=== PATIENT | female | born 1935 | race Caucasian/White ===

== ENCOUNTER 2017-01-21 10:45 | Outpatient (CLI) | payer MEDICARE ==
[2017-01-24 21:09] LABS: H. pylori IgA ABS Less than 9.0 units (0.0-8.9); H. pylori IgG ABS Less than 0.9 U/mL (0.0-0.8); H. pylori IgM ABS Less than 9.0 units (0.0-8.9)
== END 2017-01-21 10:46 | disposition home or self-care (01) ==
LOC: MADLAB 10:45
PROVIDERS: ATTEND Internal Medicine Gastroenterology
DX: R10.13 Epigastric pain (principal)
CPT/HCPCS: 36415

== ENCOUNTER 2017-09-01 13:19 | Outpatient (CLI) | payer MEDICARE | END 2017-09-01 13:20 | disposition home or self-care (01) | LOC: MADLABBHPM 13:19 | PROVIDERS: ATTEND Family Medicine | DX: R63.4 Abnormal weight loss (principal) | CPT/HCPCS: 82274 ==

== ENCOUNTER 2017-12-17 12:46 | Outpatient (CLI) | payer MEDICARE ==
--- NOTE | 2017-12-17 14:37 | CT ---
CT OF THE THORAX WITHOUT IV CONTRAST: Date: 12/17/17 INDICATION: History of cough, follow-up pulmonary lung disease. COMPARISON: Prior exam dated 02/28/16 and 08/01/14. FINDINGS: There are scattered areas of interlobular and intralobular septal thickening seen predominantly in a basilar distribution, appears similar. There are prominent areas of bronchiectasis and some pleural e mphysema is largely stable. There are fluctuating peripheralized densities likely related to some bro nchiolitis and mucus plugging that appear largely similar to the prior examination. A few scattered a reas of nodularity appear slightly more predominant, predominantly in the upper lobe distributions th an on the most recent comparison in 2005, but does not appear as severe as seen on the comparison exa m of 08/01/14. There are scattered vascular calcifications involving the coronary arteries of the tho racic aorta. The gallbladder is surgically absent. No acute osseous abnormality is demonstrated. IMPRESSION: Slightly increased fluctuating areas of peripheral nodular density and tree-in-bud type nodularity ca n be seen with mucus plugging and bronchiolitis. The bronchiectasis and peripheral interstitial lung disease appears largely stable. Continued follow-up is recommended. POS: YAN
== END 2017-12-17 12:47 | disposition home or self-care (01) ==
LOC: MADCT 12:46
PROVIDERS: ATTEND Internal Medicine
DX: J98.4 Other disorders of lung (principal); R05 Cough; M06.9 Rheumatoid arthritis, unspecified; J84.9 Interstitial pulmonary disease, unspecified; J47.9 Bronchiectasis, uncomplicated
CPT/HCPCS: 71250

== ENCOUNTER 2020-02-28 15:29 | Outpatient (CLI) | payer MEDICARE ==
[~2020-02-28 15:29] MED LIST: Iopamidol 370 76% 100 ML VIAL ONE
--- NOTE | 2020-02-28 16:42 | CT ---
Exam: Head CT with and without contrast HISTORY: Cognitive impairment. FINDINGS: Noncontrast head CT: No parenchymal hemorrhage No extra-axial hematoma No midline shift Basilar cisterns are patent Age-appropriate atrophy. Cortical vincent-white matter differentiation is preserved There are chronic small vessel ischemic changes white matter No hydrocephalus. Prominence of the ventricular system is in keeping with the overall degree of atrop hy. Intact calvarium. Adequate aeration of the sinuses and mastoid air cells Postcontrast head CT: No pathologic enhancement of the brain parenchyma. IMPRESSION: 1. No acute intracranial process 2. No pathologic enhancement the brain parenchyma. Further evaluation with brain MRI if clinically wa rranted.
== END 2020-02-28 15:30 | disposition home or self-care (01) ==
LOC: MADCT 15:29 → MADLAB 15:30
PROVIDERS: ATTEND Family Medicine
DX: G31.84 Mild cognitive impairment of uncertain or unknown etiology (principal)
CPT/HCPCS: 36415; 70470; 82565; Q9967

== ENCOUNTER 2020-12-27 06:15 | Outpatient (CLI) | payer MEDICARE ==
[2020-12-27 07:13] LABS: Bilirubin Negative (Negative); Clarity Hazy (Clear); Glucose, Urine (Dipstick) Negative (Negative); Ketone, Urine Negative (Negative); Leukocyte Large (Negative); Nitrite Positive (Negative); Protein, Urine (Dipstick) 30 mg/dL (Neg-Trace); Urobilinogen 0.2 mg/dL (Less than 2)
[2020-12-27 07:14] LABS: Bacteria/HPF 2+ HPF (None Seen); Blood, Urine Moderate (Negative); Squamous Epithelial 0-3 HPF (0-3); WBC/HPF Greater Than 50 HPF (0-3)
== END 2020-12-27 06:16 | disposition home or self-care (01) ==
LOC: MADLABBHPM 06:15
PROVIDERS: ATTEND Family Medicine
DX: R35.0 Frequency of micturition (principal); A43.0 Pulmonary nocardiosis
CPT/HCPCS: 81001; 87077; 87086; 87186

== ENCOUNTER 2021-01-02 12:12 | Inpatient (IN) | payer MEDICARE ==
[2021-01-02 13:33] VITALS: BMI 17.4
[2021-01-02] MEDS: Nitrofurantoin Monohyd/M-Cryst 100 MG CAP PO SCH (20:31)
[2021-01-03 05:45] LABS: #Basophils 0.1 thou/uL (0.0-0.2); #Eosinphils 0.2 thou/uL (0.0-0.7); #Lymphocytes 2.3 thou/uL (1.20-3.40); #Monocytes 0.6 thou/uL (0.11-0.59); #Neutrophils 3.5 thou/uL (1.40-6.50); %Eosinophils 2.7 % (0.0-10.0); %Lymphocytes 34.4 % (21.0-51.0); Hemoglobin 10.7 g/dL (12.0-16.0); Mean Corpuscular HGB CONC 31.6 g/dL (32.0-36.0); Mean Corpuscular Hemoglobin 31.6 pg (27.0-31.0); Mean Corpuscular Volume 100.1 fL (78.0-98.0); Mean Platelet Volume 8.4 fL (7.4-10.4); Platelet Count 201 thou/uL (130-400); RBC Distribution Width 12.2 % (11.5-14.5); White Blood Cell (WBC) Count 6.6 thou/uL (4.8-10.8)
[2021-01-03 06:00] LABS: ALT (SGPT) 19 U/L (8-55); AST (SGOT) 36 U/L (5-34); Albumin 2.7 g/dL (3.4-4.8); Alkaline Phosphatase 56 U/L (40-110); Anion Gap 9 mmol/L (10-20); BUN (Urea Nitrogen) 10 mg/dL (9.8-20.1); Bilirubin, Total 0.4 mg/dL (0.2-1.2); CRP (Inflammatory) 2.82 mg/dL (= or < 0.5); Calc. Creatinine Clearance 51 mL/min (70-130); Calcium 8.4 mg/dL (7.8-10.44); Carbon Dioxide 30 mmol/L (23-31); Chloride 103 mmol/L (98-107); Globulin 3.7 g/dL (2.4-3.5); Glucose 99 mg/dL (83-110); Potassium 3.2 mmol/L (3.5-5.1); Protein, Total 6.4 g/dL (5.8-8.1); Sodium 139 mmol/L (136-145)
[2021-01-03] MEDS ORDERED: Potassium Chloride 10 MEQ TAB PO SCH ×2 (08:15→17:00)
[2021-01-03] MEDS: Nitrofurantoin Monohyd/M-Cryst 100 MG CAP PO SCH ×2 (08:53→21:02)
[2021-01-03] MEDS ORDERED: Potassium Bicarbonate/Cit Ac 20 MEQ TAB PO SCH (11:00)
[2021-01-03] MEDS ORDERED: Sodium Chloride 0.9% 1,000 ML IV SCH (12:30)
[2021-01-03] MEDS: Potassium Bicarbonate/Cit Ac 20 MEQ TAB PO SCH (21:02)
[2021-01-04] MEDS: Potassium Bicarbonate/Cit Ac 20 MEQ TAB PO SCH ×2 (08:33→17:39)
[2021-01-04] MEDS: Nitrofurantoin Monohyd/M-Cryst 100 MG CAP PO SCH ×2 (08:34→20:24)
[2021-01-04] MEDS: Acetaminophen 325 MG TAB PO PRN (20:24)
[2021-01-05 05:33] LABS: #Basophils 0.1 thou/uL (0.0-0.2); #Eosinphils 0.3 thou/uL (0.0-0.7); #Lymphocytes 2.8 thou/uL (1.20-3.40); #Monocytes 0.5 thou/uL (0.11-0.59); #Neutrophils 2.3 thou/uL (1.40-6.50); %Basophils 1.4 % (0.0-1.0); %Eosinophils 4.6 % (0.0-10.0); %Lymphocytes 46.6 % (21.0-51.0); %Monocytes 8.4 % (0.0-10.0); %Neutrophils 38.9 % (42.0-75.0); Hemoglobin 11.6 g/dL (12.0-16.0); Mean Corpuscular HGB CONC 31.7 g/dL (32.0-36.0); Mean Corpuscular Hemoglobin 31.8 pg (27.0-31.0); Mean Corpuscular Volume 100.4 fL (78.0-98.0); Mean Platelet Volume 8.3 fL (7.4-10.4); Platelet Count 237 thou/uL (130-400); RBC Distribution Width 12.7 % (11.5-14.5); Red Blood Cell (RBC) Count 3.63 mill/uL (4.20-5.40)
[2021-01-05 05:43] LABS: Anion Gap 12 mmol/L (10-20); BUN (Urea Nitrogen) 10 mg/dL (9.8-20.1); Calc. Creatinine Clearance 49 mL/min (70-130); Calcium 8.8 mg/dL (7.8-10.44); Carbon Dioxide 29 mmol/L (23-31); Chloride 103 mmol/L (98-107); Glucose 101 mg/dL (83-110); Potassium 3.7 mmol/L (3.5-5.1); Sodium 140 mmol/L (136-145)
[2021-01-05] MEDS: Potassium Bicarbonate/Cit Ac 20 MEQ TAB PO SCH (08:18)
[2021-01-05] MEDS: Nitrofurantoin Monohyd/M-Cryst 100 MG CAP PO SCH (08:18)
[2021-01-05] MEDS: Acetaminophen 325 MG TAB PO PRN (22:09)
[2021-01-06] MEDS: Acetaminophen 325 MG TAB PO PRN (20:51)
[2021-01-07] MEDS: Acetaminophen 325 MG TAB PO PRN (20:38)
[2021-01-09 13:10] LABS: SARS-CoV-2 NAA Rapid Test Not Detected (NotDetected)
[2021-01-10] MEDS: Acetaminophen 325 MG TAB PO PRN (17:22)
[2021-01-11] MEDS: Acetaminophen 325 MG TAB PO PRN (20:08)
[2021-01-15 07:16] VITALS: BP 135/68; TEMP 98.1
== END 2021-01-15 11:26 | disposition home health service (06) | DRG 947 ==
LOC: MADMS 12:12
PROVIDERS: ADMIT Family Medicine; ATTEND Family Medicine
DX: R53.81 Other malaise (principal); G93.41 Metabolic encephalopathy; C85.10 Unspecified B-cell lymphoma, unspecified site; Z68.1 Body mass index [BMI] 19.9 or less, adult; N39.0 Urinary tract infection, site not specified; M06.9 Rheumatoid arthritis, unspecified; K21.9 Gastro-esophageal reflux disease without esophagitis; G31.84 Mild cognitive impairment of uncertain or unknown etiology; R63.0 Anorexia; I10 Essential (primary) hypertension; R13.10 Dysphagia, unspecified; Z20.822 Contact with and (suspected) exposure to COVID-19; T18.198A Other foreign object in esophagus causing other injury, initial encounter; E87.6 Hypokalemia; Z90.49 Acquired absence of other specified parts of digestive tract; Z90.710 Acquired absence of both cervix and uterus; Z98.890 Other specified postprocedural states; Z88.1 Allergy status to other antibiotic agents; Z88.2 Allergy status to sulfonamides; Z88.8 Allergy status to other drugs, medicaments and biological substances
CPT/HCPCS: 36415; 70360; 71045; 80048; 80053; 82306; 85025; 85652; 86140; J7050; U0002

== ENCOUNTER 2021-05-08 10:21 | Emergency (ER) | payer MEDICARE ==
[2021-05-08 10:50] LABS: #Basophils 0.1 thou/uL (0.0-0.2); #Eosinphils 0.1 thou/uL (0.0-0.7); #Lymphocytes 2.9 thou/uL (1.20-3.40); #Monocytes 0.7 thou/uL (0.11-0.59); #Neutrophils 6.7 thou/uL (1.40-6.50); %Basophils 0.7 % (0.0-1.0); %Eosinophils 1.2 % (0.0-10.0); %Lymphocytes 27.4 % (21.0-51.0); %Monocytes 6.8 % (0.0-10.0); %Neutrophils 63.9 % (42.0-75.0); Hemoglobin 12.1 g/dL (12.0-16.0); Mean Corpuscular HGB CONC 30.9 g/dL (32.0-36.0); Mean Corpuscular Hemoglobin 29.8 pg (27.0-31.0); Mean Corpuscular Volume 96.5 fL (78.0-98.0); Mean Platelet Volume 7.2 fL (7.4-10.4); Platelet Count 301 thou/uL (130-400); RBC Distribution Width 13.7 % (11.5-14.5); Red Blood Cell (RBC) Count 4.05 mill/uL (4.20-5.40); White Blood Cell (WBC) Count 10.5 thou/uL (4.8-10.8)
[2021-05-08 11:05] LABS: ALT (SGPT) Less than 7 U/L (8-55); AST (SGOT) 15 U/L (5-34); Albumin 3.1 g/dL (3.4-4.8); Alkaline Phosphatase 66 U/L (40-110); Anion Gap 13 mmol/L (10-20); BUN (Urea Nitrogen) 23 mg/dL (9.8-20.1); Bilirubin, Total 0.7 mg/dL (0.2-1.2); CK (CPK) 13 U/L (29-168); Calc. Creatinine Clearance 0 mL/min (70-130); Calcium 9.3 mg/dL (7.8-10.44); Carbon Dioxide 28 mmol/L (23-31); Chloride 100 mmol/L (98-107); Globulin 5.1 g/dL (2.4-3.5); Glucose 105 mg/dL (83-110); Lipase 11 U/L (8-78); Potassium 4.1 mmol/L (3.5-5.1); Protein, Total 8.2 g/dL (5.8-8.1); Sodium 137 mmol/L (136-145)
[2021-05-08] MEDS ORDERED: Lactated Ringer's 1,000 ML ONE (11:23)
[2021-05-08 12:10] LABS: Bilirubin Negative (Negative); Blood, Urine Trace (Negative); Clarity Slightly Cloudy (Clear); Glucose, Urine (Dipstick) Negative (Negative); Ketone, Urine Negative (Negative); Leukocyte Moderate (Negative); Nitrite Positive (Negative); Protein, Urine (Dipstick) 100 mg/dL (Neg-Trace); Urobilinogen 0.2 mg/dL (Less than 2); pH, Urine 6.5 (5.0-9.0)
[2021-05-08 12:12] LABS: Bacteria/HPF 1+ HPF (None Seen); RBC/HPF 0-3 HPF (0-3); Squamous Epithelial 0-3 HPF (0-3)
[2021-05-08] MEDS ORDERED: Sodium Chloride 0.9% 100 ML ONE (12:52)
[2021-05-08] MEDS ORDERED: cefTRIAXone\\ROCEPHIN 1 GM VIAL ONE (12:52)
[2021-05-08] MEDS ORDERED: Sodium Chloride 0.9% 1,000 ML ONE (14:30)
== END 2021-05-08 16:33 | disposition short-term general hospital (02) ==
LOC: MADERS 10:21
DX: N39.0 Urinary tract infection, site not specified (principal); R62.7 Adult failure to thrive; R53.1 Weakness; R63.4 Abnormal weight loss
CPT/HCPCS: 36415; 51702; 71045; 80053; 81003; 81015; 82550; 83605; 83690; 83735; 84443; 84484; 85025; 87077; 87086; 87186; 93005; 94760; 96365; J0696; J3490; J7050; J7120

== ENCOUNTER 2021-05-10 18:46 | Inpatient (IN) | payer MEDICARE ==
[2021-05-10] MEDS ORDERED: Guaifenesin DM 100-10/5 ML UDCUP PO PRN (20:24)
[2021-05-10] MEDS ORDERED: Senokot 8.6 MG TAB PO PRN (20:26)
[2021-05-10] MEDS ORDERED: Calcium Carbonate 500 MG ChewTAB PO PRN (20:32)
[2021-05-10] MEDS ORDERED: Acetaminophen 325 MG TAB PO PRN (20:38)
[2021-05-10] MEDS: CEFPODOXIME 200 MG TAB PO SCH (21:35)
[2021-05-10] MEDS: Dronabinol 2.5 MG CAP PO SCH (21:44)
[2021-05-10] MEDS: Famotidine 20 MG TAB PO SCH (21:44)
[2021-05-10] MEDS: Cholecalciferol 1,000 UNITS (25 MCG) TAB PO SCH (21:44)
[2021-05-11] MEDS: CEFPODOXIME 200 MG TAB PO SCH ×2 (08:53→21:12)
[2021-05-11] MEDS: Dronabinol 2.5 MG CAP PO SCH ×2 (08:53→21:12)
[2021-05-11] MEDS: predniSONE 5 MG TAB PO SCH (08:53)
[2021-05-11] MEDS: Famotidine 20 MG TAB PO SCH ×2 (08:53→21:12)
[2021-05-11] MEDS: Multivitamin W/ Minerals 1 TAB PO SCH (08:53)
[2021-05-11] MEDS: Cholecalciferol 1,000 UNITS (25 MCG) TAB PO SCH (21:12)
[2021-05-12] MEDS: Famotidine 20 MG TAB PO SCH ×2 (08:39→20:13)
[2021-05-12] MEDS: Dronabinol 2.5 MG CAP PO SCH ×2 (08:39→20:14)
[2021-05-12] MEDS: predniSONE 5 MG TAB PO SCH (08:39)
[2021-05-12] MEDS: Multivitamin W/ Minerals 1 TAB PO SCH (08:39)
[2021-05-12] MEDS: CEFPODOXIME 200 MG TAB PO SCH (08:40)
[2021-05-12] MEDS: Cholecalciferol 1,000 UNITS (25 MCG) TAB PO SCH (20:13)
[2021-05-12] MEDS: CEFPODOXIME PO SCH ×2 (20:14→21:00)
[2021-05-13] MEDS: Multivitamin W/ Minerals 1 TAB PO SCH (08:13)
[2021-05-13] MEDS: predniSONE 5 MG TAB PO SCH (08:13)
[2021-05-13] MEDS: Dronabinol 2.5 MG CAP PO SCH ×2 (08:13→20:48)
[2021-05-13] MEDS: Famotidine 20 MG TAB PO SCH ×2 (08:13→20:48)
[2021-05-13] MEDS: CEFPODOXIME PO SCH ×2 (08:14→20:48)
[2021-05-13] MEDS: Cholecalciferol 1,000 UNITS (25 MCG) TAB PO SCH (20:48)
[2021-05-14] MEDS: Famotidine 20 MG TAB PO SCH ×2 (08:18→20:50)
[2021-05-14] MEDS: predniSONE 5 MG TAB PO SCH (08:18)
[2021-05-14] MEDS: Multivitamin W/ Minerals 1 TAB PO SCH (08:18)
[2021-05-14] MEDS: CEFPODOXIME PO SCH (08:19)
[2021-05-14] MEDS: Dronabinol 2.5 MG CAP PO SCH (08:22)
[2021-05-14] MEDS: Cholecalciferol 1,000 UNITS (25 MCG) TAB PO SCH (20:50)
[2021-05-14] MEDS: Megestrol Acetate 400 MG/10 ML UDCUP PO SCH (20:52)
[2021-05-15] MEDS: Multivitamin W/ Minerals 1 TAB PO SCH (08:07)
[2021-05-15] MEDS: predniSONE 5 MG TAB PO SCH (08:07)
[2021-05-15] MEDS: Megestrol Acetate 400 MG/10 ML UDCUP PO SCH ×2 (08:07→20:47)
[2021-05-15] MEDS: Famotidine 20 MG TAB PO SCH ×2 (08:07→20:47)
[2021-05-15] MEDS ORDERED: Mag-Al Plus 1200 MG/1200 MG/120 MG/30 ML UDCUP PO PRN (08:18)
[2021-05-15] MEDS: Ketoconazole 2% Cream 15 gm Tube TOP SCH (10:27)
[2021-05-15] MEDS: Cholecalciferol 1,000 UNITS (25 MCG) TAB PO SCH (20:47)
[2021-05-16] MEDS: Megestrol Acetate 400 MG/10 ML UDCUP PO SCH ×2 (08:46→20:49)
[2021-05-16] MEDS: predniSONE 5 MG TAB PO SCH (08:46)
[2021-05-16] MEDS: Famotidine 20 MG TAB PO SCH ×2 (08:46→20:49)
[2021-05-16] MEDS: Ketoconazole 2% Cream 15 gm Tube TOP SCH (08:47)
[2021-05-16 11:22] LABS: SARS-CoV-2 PCR by NAA Not Detected (NotDetected)
[2021-05-16] MEDS: Cholecalciferol 1,000 UNITS (25 MCG) TAB PO SCH (20:49)
[2021-05-17] MEDS: Famotidine 20 MG TAB PO SCH ×2 (08:26→21:27)
[2021-05-17] MEDS: Ketoconazole 2% Cream 15 gm Tube TOP SCH (08:26)
[2021-05-17] MEDS: Megestrol Acetate 400 MG/10 ML UDCUP PO SCH ×2 (08:26→21:27)
[2021-05-17] MEDS: predniSONE 5 MG TAB PO SCH (08:27)
[2021-05-17] MEDS: Cholecalciferol 1,000 UNITS (25 MCG) TAB PO SCH (21:27)
[2021-05-18] MEDS: Megestrol Acetate 400 MG/10 ML UDCUP PO SCH ×2 (09:56→20:45)
[2021-05-18] MEDS: Famotidine 20 MG TAB PO SCH ×2 (09:56→20:46)
[2021-05-18] MEDS: Ketoconazole 2% Cream 15 gm Tube TOP SCH (09:56)
[2021-05-18] MEDS: predniSONE 5 MG TAB PO SCH (09:56)
[2021-05-18] MEDS: Cholecalciferol 1,000 UNITS (25 MCG) TAB PO SCH (20:45)
[2021-05-19] MEDS: Famotidine 20 MG TAB PO SCH ×2 (09:30→20:26)
[2021-05-19] MEDS: Megestrol Acetate 400 MG/10 ML UDCUP PO SCH ×2 (09:30→20:26)
[2021-05-19] MEDS: predniSONE 5 MG TAB PO SCH (09:30)
[2021-05-19] MEDS: Ketoconazole 2% Cream 15 gm Tube TOP SCH (09:34)
[2021-05-19] MEDS: Cholecalciferol 1,000 UNITS (25 MCG) TAB PO SCH (20:26)
[2021-05-20] MEDS: Ketoconazole 2% Cream 15 gm Tube TOP SCH (08:34)
[2021-05-20] MEDS: predniSONE 5 MG TAB PO SCH (08:34)
[2021-05-20] MEDS: Megestrol Acetate 400 MG/10 ML UDCUP PO SCH ×2 (08:34→20:03)
[2021-05-20] MEDS: Famotidine 20 MG TAB PO SCH ×2 (08:34→20:03)
[2021-05-20] MEDS: Cholecalciferol 1,000 UNITS (25 MCG) TAB PO SCH (20:03)
[2021-05-21] MEDS: Megestrol Acetate 400 MG/10 ML UDCUP PO SCH ×2 (08:49→21:42)
[2021-05-21] MEDS: Famotidine 20 MG TAB PO SCH ×2 (08:49→21:41)
[2021-05-21] MEDS: predniSONE 5 MG TAB PO SCH (08:49)
[2021-05-21] MEDS: Ketoconazole 2% Cream 15 gm Tube TOP SCH (08:50)
[2021-05-21 11:41] VITALS: BMI 15.8
[2021-05-21] MEDS: Cholecalciferol 1,000 UNITS (25 MCG) TAB PO SCH (21:42)
[2021-05-22] MEDS: predniSONE 5 MG TAB PO SCH (08:11)
[2021-05-22] MEDS: Famotidine 20 MG TAB PO SCH ×2 (08:11→21:13)
[2021-05-22] MEDS: Ketoconazole 2% Cream 15 gm Tube TOP SCH (08:11)
[2021-05-22] MEDS: Megestrol Acetate 400 MG/10 ML UDCUP PO SCH ×2 (08:11→21:13)
[2021-05-22 16:45] LABS: SARS-CoV-2 PCR by NAA Not Detected (NotDetected)
[2021-05-22] MEDS: Cholecalciferol 1,000 UNITS (25 MCG) TAB PO SCH (21:13)
[2021-05-23] MEDS: Ketoconazole 2% Cream 15 gm Tube TOP SCH (08:19)
[2021-05-23] MEDS: Megestrol Acetate 400 MG/10 ML UDCUP PO SCH ×2 (08:19→21:07)
[2021-05-23] MEDS: predniSONE 5 MG TAB PO SCH (08:19)
[2021-05-23] MEDS: Famotidine 20 MG TAB PO SCH ×2 (08:19→21:07)
[2021-05-23] MEDS: Cholecalciferol 1,000 UNITS (25 MCG) TAB PO SCH (21:07)
[2021-05-24] MEDS: Famotidine 20 MG TAB PO SCH ×2 (08:05→20:41)
[2021-05-24] MEDS: Megestrol Acetate 400 MG/10 ML UDCUP PO SCH ×2 (08:05→20:41)
[2021-05-24] MEDS: predniSONE 5 MG TAB PO SCH (08:05)
[2021-05-24] MEDS: Ketoconazole 2% Cream 15 gm Tube TOP SCH (08:10)
[2021-05-24] MEDS: Cholecalciferol 1,000 UNITS (25 MCG) TAB PO SCH (20:41)
[2021-05-25] MEDS: predniSONE 5 MG TAB PO SCH (08:33)
[2021-05-25] MEDS: Famotidine 20 MG TAB PO SCH (08:33)
[2021-05-25] MEDS: Megestrol Acetate 400 MG/10 ML UDCUP PO SCH (08:33)
[2021-05-25] MEDS: Ketoconazole 2% Cream 15 gm Tube TOP SCH (08:34)
[2021-05-25 13:50] VITALS: BP 116/78; TEMP 97.7
== END 2021-05-25 13:15 | DRG 947 ==
LOC: MADMS 18:46
PROVIDERS: ADMIT Family Medicine; ATTEND Family Medicine
DX: R53.81 Other malaise (principal); E43 Unspecified severe protein-calorie malnutrition; N39.0 Urinary tract infection, site not specified; Z68.1 Body mass index [BMI] 19.9 or less, adult; M06.9 Rheumatoid arthritis, unspecified; I10 Essential (primary) hypertension; Z20.822 Contact with and (suspected) exposure to COVID-19; K21.9 Gastro-esophageal reflux disease without esophagitis; G30.9 Alzheimer's disease, unspecified; R63.0 Anorexia; F09 Unspecified mental disorder due to known physiological condition; J84.10 Pulmonary fibrosis, unspecified; F02.80 Dementia in other diseases classified elsewhere, unspecified severity, without behavioral disturbance, psychotic disturbance, mood disturbance, and anxiety; Z85.72 Personal history of non-Hodgkin lymphomas; Z92.21 Personal history of antineoplastic chemotherapy; Z90.49 Acquired absence of other specified parts of digestive tract; Z90.89 Acquired absence of other organs; Z90.710 Acquired absence of both cervix and uterus; Z79.899 Other long term (current) drug therapy; Z88.1 Allergy status to other antibiotic agents
CPT/HCPCS: J7512; Q0167; U0003; U0005